=== PATIENT | female | born 1940 | race Caucasian/White ===

== ENCOUNTER 2016-08-16 17:57 | Inpatient (IN) | payer OTHER ==
[2016-08-16] MEDS ORDERED: SODIUM CHLORIDE 0.9% 10 ML FLUSH FLUSH PRN (18:07)
[2016-08-16] MEDS ORDERED: METHYLPREDNISOLONE 125 MG/2 ML VIAL IV ONE (18:07)
[2016-08-16] MEDS ORDERED: Albuterol/Ipratropium Neb 3 ML NEB NEB ONE (18:07)
--- NOTE | 2016-08-16 18:09 | EDPRACDOC ---
- General Information Information Source: Patient, Family Mode Of Arrival: Car - History of Present Illness Onset: 1 week HPI: Pt c/o sob, green productive cough, congestion x 1 week. Denies fever, earache, sore throat, cp, abd pain, n/v, changes in bowel or bladder, rash. Pt states leg swelling for "a while" but has not recently changed. Pt sent from Urgent care for eval. Shortness of Breath: Mild Relevant History: Reports: COPD Cough: Reports: Productive, Green Rhinorrhea: Reports: Clear Ear Symptoms: Reports: None SOB Worsens with: Reports: Exertion, Coughing SOB Improves with: Reports: Nothing Associated Signs and symptoms: Reports: Cough, Nasal Symptoms <Vikki Sue - Last Filed: 08/16/16 20:29> - History of Present Illness HPI: MD NOTE PT SEEN AND EXAMINED; FAMILY IS VERY CONFUSED. SEEN AT URGENT CARE BY DR. JENKINS. 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 SENT HERE FOR CXR AND TOLD PT NEEDED TO BE ADMITTED. FAMILY WAS UNAWARE HE DOES NOT HAVE ADMITTING PRIVILEGES HERE. COUGH AND CONGESTION. REPORTEDLY ABX AND NEBS GIVEN THERE AT URGENT CARE. THEY CLOSED AT 6P. UNABLE TO CONTACT. I EXPLAINED MULTIPLE TIMES WE NEED MORE INFORMATION BEFORE FINAL DECISION IS MADE. EXPLAINED MORE TO THE ENTIRE PROCESS OF PNEUMONIA AND ADMISSION OR SOMETHING ELSE. FAMILY REPORTS IM INJECTION AT <TroyBenjyjaime Phillips - Last Filed: 08/16/16 21:43> - General Information Chief Complaint: Adult Asthma Stated Complaint: Resp distress Time Seen by Provider: 08/16/16 18:01 Home Medications: Home Medications Alprazolam 1 mg PO TID 06/29/12 Losartan Potassium [Cozaar] 100 mg PO DAILY 06/29/12 Omeprazole 20 mg PO QAM 06/29/12 Simvastatin 40 mg PO HS 06/29/12 Trazodone HCl 100 - 200 mg PO HS 06/29/12 Aspirin (Enteric Coated) [Halfprin] 81 mg PO DAILY 08/26/13 Calcium Carbonate/Vitamin D3 [Calcium + Vit D Caplet (600mg/400IU)] 1 tab PO DAILY 08/26/13 Donepezil HCl [Aricept] 5 mg PO HS 08/26/13 Gabapentin 100 mg PO BID 08/26/13 Oxycodone HCl/Acetaminophen [Percocet 5-325 mg Tablet] 1 tab PO BID PRN Ranitidine [Zantac] 150 mg PO BID 08/26/13 Cetirizine HCl [All Day Allergy] 10 mg PO DAILY 04/21/14 Furosemide [Lasix] 80 mg PO DAILY 04/21/14 Hydralazine HCl 100 mg PO TID 04/21/14 Labetalol HCl 200 mg PO TID 04/21/14 Duloxetine [Cymbalta] 60 mg PO DAILY 08/16/16 Meloxicam [Mobic] 7.5 mg PO BID 08/16/16 Allergies/Adverse Reactions: Allergies Allergy/AdvReac Type Severity Reaction Status Date / Time Sulfa (Sulfonamide Allergy Unknown/See Verified 08/16/16 18:35 Antibiotics) Comments [Sulfa(Sulfonamide Antibiotics)] - Treatment Prior to ED Arrival Reported 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/Treatment 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 Treated With Medication 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 YES Medications 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 (Medication/ DuoNeb, rocephin Dose/Time) <Vikki Sue - Last Filed: 08/16/16 20:29> - Treatment Prior to ED Arrival Reported Medications/Treatment 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 Treated With Medication 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 YES Medications 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 (Medication/ DuoNeb, rocephin Dose/Time) <Benjy Simmons - Last Filed: 08/16/16 21:43> ED Past Medical History - History Reviewed Yes Nurses notes reviewed and agree except as marked - Patient Medical History Cardiac History: Reports: Hypertension, Hypercholesterolemia Respiratory History: Reports: Asthma, COPD GI/ History: Reports: Gastroesophageal Reflux Musculoskeletal History: Reports: Osteoarthritis Psychological History: Reports: Anxiety. Denies: Depression, Substance Use Disorder Systemic History: Reports: Cancer (BREAST, MELANOMA), Anemia, Hypothyroidism Surgical History: Reports: Tonsillectomy/Adnoidectomy Date of Last Radiation Treatment: 1993 Date of Last Chemotherapy Date: 1993 - Family Medical History Reports: Hypertension (MOM/DAD), Cancer (DAD-COLONCANCER), Stroke (Mother and Father). Denies: Diabetes, Cardiac Disorders - Social Medical History Smoking Status: Never smoker Social History: Denies: Substance Use Disorder ETOH: None Substance Abuse: None <Vikki Sue - Last Filed: 08/16/16 20:29> EDM Review of Systems - Review of Systems Constitutional: No Symptoms Reported. negative: Fever, Chills, Weakness, Fatigue, Loss of Appetite Ears: No Symptoms Reported. negative: Pain, Hearing Loss, Drainage, Ear Pulling Throat: No Symptoms Reported. negative: Pain, Swelling Nose: Congestion Mouth: No Symptoms Reported. negative: Pain, Drooling Respiratory: Cough, Shortness of Breath Cardiovascular: Edema. negative: No Symptoms Reported, Chest Pain, Cyanosis, Orthopnea, Palpitations, PND, Syncope, Skin Mottling Gastrointestinal: No Symptoms Reported. negative: Pain, Constipation, Nausea, Vomiting, Diarrhea, Melena, Formula Intolerance Genitourinary: No Symptoms Reported. negative: Dysuria, Hematuria, Frequency, Discharge, Bleeding, Testicular Pain, Neurological: No Symptoms Reported. negative: Headache, Dizziness, Seizure, Numbness, Weakness, Speech Difficulty, Gait Difficulty Musculoskeletal: No Symptoms Reported. negative: Neck, Chestwall, Ribs, Back, Shoulder, Arm, Elbow, Forearm, Wrist, Hand, Pelvis, Hip, Femur, Knee, Leg, Ankle , Foot Integumentary: No Symptoms Reported. negative: Itching, Rash, Bruising, Wound Allergic/Immunologic: No Symptoms Reported. negative: Hives, Itching Hematologic: No Symptoms Reported. negative: Lymphadenopathy, Easy Bruising, Easy Bleeding Psychiatric: No Symptoms Reported. negative: Anxiety, Depression, Hallucinations, Insomnia, Suicidal <Vikki Sue - Last Filed: 08/16/16 20:29> - Physical Exam Constitutional: Alert Oriented to: Time, Person, Place Last recorded Vital Signs: Last Vital Signs Temp 98.7 F 08/16/16 18:02 Pulse 80 08/16/16 18:02 Resp 22 08/16/16 18:02 BP 175/76 08/16/16 18:02 Pulse Ox 93 08/16/16 18:02 Oxygen Pulse Oxygen Saturation 93 O2 Device Room Air Oxygen Flow Rate Fraction of Inspired Oxygen ( FIO2) - HEENT Head: Normal ( normocephalic) Eye Exam: Normal (PERRL, EOMI, Sclera white) Oropharynx: Normal (Pharynx:Moist without exudate,Gums-no swelling) Tympanic Membrane: Normal ENT EAC: Normal Nose: Congestion Neck: Normal (FROM, trachea at midline) - Respiratory/Cardiovascular Respiratory: Rales Cardiovascular: Normal (RRR without murmur, gallop or rub) - GI Auscultation: Normal (NABS) Palpation: Normal (Soft,No rebound or guarding, non distended) Tenderness: Non tender - Musculoskeletal Back: Normal (Non-Tender) Extremities: Edema (+2 bilateral lower legs) - Integumentary Skin: Normal, Warm, Dry Lymphatics: Normal (no adenopathy) - Neurologic Memory Impaired: Normal Motor Function: Normal (Normal tone, Pulses 2+ No cyanosis or edema, FROM) Mood Description: Normal Perception: Normal <Vikki Sue - Last Filed: 08/16/16 20:29> - Physical Exam Last recorded Vital Signs: Last Vital Signs Temp 98.7 F 08/16/16 18:02 Pulse 80 08/16/16 18:02 Resp 22 08/16/16 18:02 BP 175/76 08/16/16 18:02 Pulse Ox 93 08/16/16 18:02 Oxygen Pulse Oxygen Saturation 93 O2 Device Room Air Oxygen Flow Rate Fraction of Inspired Oxygen ( FIO2) <Benjy Simmons - Last Filed: 08/16/16 21:43> ED SOB MDM - Differential Diagnosis Differential Diagnosis: Heart Failure, Pnuemonia, Respiratory Insufficiency, URI , Other (COPD exacberation) - Results Result Diagrams: 08/16/16 19:20 08/16/16 19:20 - EKG EKG #1 EKG Time: 18:14 Rate: bpm: 82 [place]: LAD Rhythm: NSR, PACs Block: None ST: Nonsp Comparison: 04/21/14 (no significant change) - Diagnostic Imaging Chest Image interpreted by: Radiologist Diagnostic Imaging Comments: IMPRESSION: No active disease. <Vikki Sue - Last Filed: 08/16/16 20:29> - Results Result Diagrams: 08/16/16 19:20 08/16/16 19:20 Results: Puncture Site Right radial 08/16/16 18:25 pH 7.500 pH UNITS (7.35-7.45) H 08/16/16 18:25 pCO2 38.0 mmHg (35-45) 08/16/16 18:25 pO2 69.0 mmHg (80-100) L 08/16/16 18:25 HCO3 29.6 MMOL/L (22-26) H 08/16/16 18:25 Total CO2 30.8 MMOL/L (23-27) H 08/16/16 18:25 Base Excess 6.1 (+/- 2) H 08/16/16 18:25 FiO2 % 21% 08/16/16 18:25 Specimen Drawn By Emma 08/16/16 18:25 Lab Results 08/16/16 18:25 Puncture Site Right radial pH 7.500 H pCO2 38.0 pO2 69.0 L HCO3 29.6 H Total CO2 30.8 H Base Excess 6.1 H FiO2 % 21% Specimen Drawn By Emma <Benjy Simmons - Last Filed: 08/16/16 21:43> - Departure Disposition: Admit IP To This Hospital Education/Counseling Given To: Patient Education/Counseling Given Regarding: Diagnosis, Treatment, Follow Up Decision to Admit Time: 20:30 (Dr Simmons contacted Dr Wayne for admission consult ) Decision to admit date: 08/16/16 Decision to admit: from ED <Vikki Sue - Last Filed: 08/16/16 20:29> Decision to Admit Time: 21:30 Decision to admit date: 08/16/16 Decision to admit: from ED <Benjy Simmons - Last Filed: 08/16/16 21:43> - Departure Condition: Stable Final Diagnosis: Bronchopneumonia, COPD exacerbation Referrals: Burke Loera MD [Primary Care Provider] - One Week
[2016-08-16 18:28] LABS: ALLEN'S TEST PASS; BEb 6.1 (+/- 2); TCO2 30.8 MMOL/L (23-27)
[2016-08-16 18:29] LABS: ABG Draw Site Right Radial
--- NOTE | 2016-08-16 18:59 | DIRPT ---
CLINICAL DATA: 75-year-old female with shortness of breath. EXAM: PORTABLE CHEST 1 VIEW COMPARISON: 06/28/2016 and prior radiographs. FINDINGS: Upper limits normal heart size again noted. There is no evidence of focal airspace disease, pulmonary edema, suspicious pulmonary nodule/mass, pleural effusion, or pneumothorax. No acute bony abnormalities are identified. IMPRESSION: No active disease. Electronically Signed By: French King M.D. On: 08/16/2016 18:57
[2016-08-16] MEDS ORDERED: Pharmacy Review for Metformin - IV Contrast Given SCH (19:00)
[2016-08-16 19:37] LABS: AUTOMATED BASOPHIL 0.8 % (0-2); AUTOMATED EOSINOPHIL 2.9 % (0-5); AUTOMATED LYMPH 15.3 % (17-44); AUTOMATED MONOCYTE 10.4 % (3-10); AUTOMATED NEUTROPHIL 70.6 % (45-76)
[2016-08-16 19:52] LABS: BLOOD UREA NITROGEN 15 MG/DL (7-17); CALCIUM 8.3 MG/DL (8.4-10.2); CALCULATED OSMOLALITY 267 MOs/Kg (270-290); CHLORIDE 101 mEq/L (98-107); GLUCOSE 106 MG/DL (70-99); SODIUM LEVEL 138 mEq/L (137-146); TOTAL PROTEIN 6.2 G/DL (6.3-8.2)
[2016-08-16 19:56] LABS: PARTIAL THROMB. TIME 24.4 SEC (22-35)
[2016-08-16] MEDS ORDERED: AZITHROMYCIN 500 MG in D5W 250 ML IV ONE (19:57)
--- NOTE | 2016-08-16 20:04 | HISTPHYS ---
- Chief Complaint shortness of breath - History of Present Illness PRIMARY CARE PROVIDER: Dr. Loera HPI: The patient is a 75 yo woman who presents with shortness of breath. She was at urgent care and they told her to come to the emergency department for admission. Her oxygen level was 91% at the urgent care; she was given an IM injection of Rocephin and a breathing treatment. She has had a severe cough and congestion for over a week. She was taking over the counter medications. Some wheezing. Shortness of breath. Onset: over a week ago. Duration: intermittent. Character: can't get a good breath. Alleviated by: Nothing. Exacerbated by: Nothing. Associated Symptoms: Shortness of breath, coughing, wheezing. Coughing productive of green sputum, but it was hard to get up. Chills but no fever. No diaphoresis. Difficulty walking and falling often over several months. Dysuria and mild hematuria. Treatments: none at home except usual medications. - Medical History Cardiac History: Reports: Hypertension, Hypercholesterolemia, SVT (resolved after ablation), Other (LONG QT SYNDROME.) Respiratory History: Reports: Asthma, COPD GI/ History: Reports: Gastroesophageal Reflux Musculoskeletal History: Reports: Osteoarthritis Systemic History: Reports: Cancer (BREAST LEFT 1989, MELANOMA - 1988. Radiation and chemotherapy.), Anemia, Hypothyroidism Neurological History: Reports: Dementia Psychological History: Reports: Anxiety. Denies: Depression, Substance Use Disorder - Surgical History Reports: Tonsillectomy/Adnoidectomy - Medictions/Allergies Allergies Sulfa (Sulfonamide Antibiotics) [Sulfa(Sulfonamide Antibiotics)] Allergy ( Verified 08/16/16 18:35) Unknown/See Comments Caused cellulitis in both ankles twice Current Medication List: Reviewed Home Medications Alprazolam 1 mg PO TID 06/29/12 Losartan Potassium [Cozaar] 100 mg PO DAILY 06/29/12 Omeprazole 20 mg PO QAM 06/29/12 Simvastatin 40 mg PO HS 06/29/12 Trazodone HCl 100 - 200 mg PO HS 06/29/12 Aspirin (Enteric Coated) [Halfprin] 81 mg PO DAILY 08/26/13 Calcium Carbonate/Vitamin D3 [Calcium + Vit D Caplet (600mg/400IU)] 1 tab PO DAILY 08/26/13 Donepezil HCl [Aricept] 5 mg PO HS 08/26/13 Gabapentin 100 mg PO BID 08/26/13 Oxycodone HCl/Acetaminophen [Percocet 5-325 mg Tablet] 1 tab PO BID PRN Ranitidine [Zantac] 150 mg PO BID 08/26/13 Cetirizine HCl [All Day Allergy] 10 mg PO DAILY 04/21/14 Furosemide [Lasix] 80 mg PO DAILY 04/21/14 Hydralazine HCl 100 mg PO TID 04/21/14 Labetalol HCl 200 mg PO TID 04/21/14 Duloxetine [Cymbalta] 60 mg PO DAILY 08/16/16 Meloxicam [Mobic] 7.5 mg PO BID 08/16/16 - Family History Reports: Hypertension (MOM/DAD), Cancer (FATHER - COLON CANCER), Stroke (Mother and Father), Cardiac Disorders (3 daughters LONG QT SYNDROME. Brother [place] and 57yo.). Denies: Diabetes - Social History Smoking Status: Former smoker (Quit 14 years ago. Previously 1ppd.) Social History: Denies: Alcohol Use, Substance Use Disorder - Review of Systems GENERAL: Chills but no fever. No diaphoresis. Positive for fatigue/malaise. HEENT: No ear pain or discharge. No nasal discharge or bleeding. No throat pain or swelling. No eye pain or eye redness. RESPIRATORY: Shortness of breath, coughing, wheezing. CARDIOVASCULAR: No chest pain or palpitations. GI: No abdominal pain, nausea, vomiting, diarrhea, constipation, or bloody stool. NEUROLOGICAL: No headache or focal weakness. INTEGUMENT: no rashes, itching, or lesions. LYMPHATIC SYSTEM: no lymph node swelling or pain. MUSCULOSKELETAL: Leg weakness and pain x months; otherwise no new pain or joint swelling. GENITOURINARY: Dysuria and mild hematuria. ENDOCRINE: No polyuria or polydipsia. HEME: No chronic anemia, bleeding. Positive for easy bruising. - Physical Exam Vital Signs: Initial Vitals Temperature 98.7 F 08/16/16 18:02 Pulse Rate 80 08/16/16 18:02 Respiratory Rate 22 08/16/16 18:02 Blood Pressure 175/76 08/16/16 18:02 Pulse Oxygen Saturation 93 08/16/16 18:02 Vital Signs - 24 hr 08/16/16 18:02 Temperature 98.7 F Pulse Rate 80 Respiratory 22 Rate Blood Pressure 175/76 Pulse Oxygen 93 Saturation Weight: 77.1 kg Height: 5 feet 6 inches BMI: 27.4 - Other Exam Other Exam Findings: GENERAL: Ill-appearing, well nourished, in acute distress. HEENT: Normocephalic, atraumatic; pupils equal and round. Nares patent, without discharge or bleeding. No oropharyngeal lesions or erythema. Mucous membranes are dry. NECK: is supple, no masses, trachea midline. RESPIRATORY: Clear to auscultation bilaterally. Chest wall movements are symmetric. No use of accessory muscles to breathe. Intermittent tachypnea. Decreased breath sounds in bases. Minimal rhonchi. Scattered minimal wheezing. CARDIOVASCULAR: Normal S1, S2. Murmur 2/6 systolic flow heard intermittently. No rubs, or gallops. PMI non-displaced. Carotids: no carotid bruits. No bradycardia or tachycardia. DP pulses 2+ bilaterally. GI: soft, nontender, non-distended, normal active bowel sounds. No hepatosplenomegaly. INTEGUMENT: Clean, dry, and intact. Erythematous rash in the inguinal areas. No lesions. MUSCULOSKELETAL: Moving all extremities. No cyanosis. No clubbing. Edema: trace lower extremity edema bilaterally. NEUROLOGICAL: Cranial nerves 2-12 grossly intact. Motor 4/5 throughout upper extremities and 4-/5 in lower extremities. Reflexes: 2+ bilaterally. Babinski: toes downgoing bilaterally. Intact Finger to nose. Sensory grossly intact to light touch. Intact rapid alternating movements bilaterally. No pronator drift. PSYCHIATRIC: Fully oriented. Normal and appropriate affect. LYMPHATIC: No cervical lymphadenopathy. No supraclavicular lymphadenopathy. - Lab Results Laboratory Results - last 24 hr 08/16/16 08/16/16 08/16/16 18:25 19:20 19:20 WBC RBC Hgb Hct MCV MCH MCHC RDW Plt Count MPV Neut % (Auto) Lymph % (Auto) [place] % (Auto) Eos % (Auto) Baso % (Auto) Absolute Neuts (auto) Absolute Lymphs (auto) PT INR APTT Puncture Site Right radial pH 7.500 H pCO2 38.0 pO2 69.0 L HCO3 29.6 H Total CO2 30.8 H Base Excess 6.1 H FiO2 % 21% Specimen Drawn By Roude Sodium 138 Potassium 3.2 L Chloride 101 Carbon Dioxide 28 Anion Gap 12 BUN 15 Creatinine 0.90 Estimated GFR (MDRD) > 60 Glucose 106 H Calculated Osmolality 267 L Lactic Acid 0.9 Calcium 8.3 L Corrected Calcium 9.0 Total Bilirubin 0.4 AST 27 ALT 20 Alkaline Phosphatase 91 Total Protein 6.2 L Albumin 3.3 L 08/16/16 08/16/16 19:20 19:20 WBC 10.1 RBC 3.64 L Hgb 10.7 L Hct 32.2 L MCV 89 MCH 29.4 MCHC 33.2 RDW 14.2 Plt Count 215 MPV 7.0 L Neut % (Auto) 70.6 Lymph % (Auto) 15.3 L [place] % (Auto) 10.4 H Eos % (Auto) 2.9 Baso % (Auto) 0.8 Absolute Neuts (auto) 7.07 Absolute Lymphs (auto) 1.52 PT 10.1 INR 1.0 APTT 24.4 Puncture Site pH pCO2 pO2 HCO3 Total CO2 Base Excess FiO2 % Specimen Drawn By Sodium Potassium Chloride Carbon Dioxide Anion Gap BUN Creatinine Estimated GFR (MDRD) Glucose Calculated Osmolality Lactic Acid Calcium Corrected Calcium Total Bilirubin AST ALT Alkaline Phosphatase Total Protein Albumin - Diagnostic Findings EK bpm. Sinus rhythm with PACs. Nonspecific T wave abnormality. Flat T waves in 2, 3, V5, and V6. Inverted T wave in leads V2, V3, and V4. Reviewed EKG personally. Chest x-ray, viewed personally: EXAM: PORTABLE CHEST 1 VIEW COMPARISON: 06/28/2016 and prior radiographs. FINDINGS: Upper limits normal heart size again noted. There is no evidence of focal airspace disease, pulmonary edema, suspicious pulmonary nodule/mass, pleural effusion, or pneumothorax. No acute bony abnormalities are identified. IMPRESSION: No active disease. CTA Chest: EXAM: CT ANGIOGRAPHY CHEST WITH CONTRAST TECHNIQUE: Multidetector CT imaging of the chest was performed using the standard protocol during bolus administration of intravenous contrast. Multiplanar CT image reconstructions and MIPs were obtained to evaluate the vascular anatomy. CONTRAST: 80 mL of Isovue 370 IV contrast COMPARISON: Chest radiograph performed earlier today at 6:28 p.m. FINDINGS: There is no evidence of pulmonary embolus. Patchy bibasilar airspace opacities raise concern for pneumonia. A 5 mm nodule at the medial right upper lobe (image 37 of 117) may also reflect acute infection. There is no evidence of significant focal consolidation, pleural effusion or pneumothorax. No masses are identified; no abnormal focal contrast enhancement is seen. Visualized mediastinal nodes remain borderline normal in size. No pericardial effusion is identified. The great vessels are grossly unremarkable in appearance. No axillary lymphadenopathy is seen. Scattered hypodensities and calcifications within the thyroid are likely within normal limits. No dominant mass is seen. The visualized portions of the liver and spleen are unremarkable. The visualized portions of the pancreas, stomach, adrenal glands and kidneys are within normal limits. No acute osseous abnormalities are seen. Minimal degenerative change is noted along the upper thoracic spine. Review of the MIP images confirms the above findings. IMPRESSION: 1. No evidence of pulmonary embolus. 2. Patchy bibasilar airspace opacities raise concern for pneumonia. 3. 5 mm nodule at the medial right upper lobe may also reflect acute infection. However, depending on the degree of clinical suspicion, if the patient is at high risk for bronchogenic carcinoma, follow-up chest CT at 6-12 months is recommended. If the patient is at low risk for bronchogenic carcinoma, follow-up chest CT at 12 months is recommended. This recommendation follows the consensus statement: Guidelines for Management of Small Pulmonary Nodules Detected on CT Scans: A Statement from the Fleischner Society as published in Radiology 2005;237:395-400. 4. Sub-centimeter thyroid nodule(s) noted, too small to characterize, but most likely benign. - Assessment (1) Bacterial pneumonia J15.9 - UNSPECIFIED BACTERIAL PNEUMONIA Acute Present on Admission: Yes Pneumonia. Requiring continuous oxygen support. Type: Community acquired pneumonia. Criteria for diagnosis: Chest CT suggestive of pneumonia. Likely bacterial. Plan: Sputum culture has been ordered. Treat with IV Zosyn, due to patient's significant history of long QT syndrome. Monitor oxygen saturation levels. (2) Hypoxia R09.02 - HYPOXEMIA Acute Present on Admission: Yes O2 by nasal cannula. (3) Hypokalemia E87.6 - HYPOKALEMIA Acute Present on Admission: Yes Replace potassium with KCl. Check magnesium level and replace as needed. (4) Long QT syndrome I45.81 - LONG QT SYNDROME Acute Present on Admission: Yes Due to her long QT syndrome, do not use azithromycin, Levaquin or other fluoroquinolones, Zofran, or other medications that can prolong the QT. Will also hold patient's Aricept and trazadone that she takes at home, due to their ability to cause prolonged QT. Patient to follow up with her primary care to discuss whether she would be able to take other medications in place of these. (5) COPD exacerbation J44.1 - CHRONIC OBSTRUCTIVE PULMONARY DISEASE W (ACUTE) EXACERBATION Acute Present on Admission: Yes COPD exacerbation suspected, but contribution to patient's respiratory disress is minimal. Plan: Nebs of Duoneb q 6 hours scheduled and albuterol q 2 hours prn. Sputum culture ordered. IV methylprednisolone. Continuous oxygen support. (6) Abnormal CT scan, chest R93.8 - ABNORMAL FINDINGS ON DIAGNOSTIC IMAGING OF BODY STRUCTURES Acute Present on Admission: Yes IMPRESSION: 1. No evidence of pulmonary embolus. 2. Patchy bibasilar airspace opacities raise concern for pneumonia. 3. 5 mm nodule at the medial right upper lobe may also reflect acute infection. However, depending on the degree of clinical suspicion, if the patient is at high risk for bronchogenic carcinoma, follow-up chest CT at 6-12 months is recommended. If the patient is at low risk for bronchogenic carcinoma, follow-up chest CT at 12 months is recommended. This recommendation follows the consensus statement: Guidelines for Management of Small Pulmonary Nodules Detected on CT Scans: A Statement from the Fleischner Society as published in Radiology 2005;237:395-400. 4. Sub-centimeter thyroid nodule(s) noted, too small to characterize, but most likely benign. Plan: Patient and family informed of results. Follow up with primary care physician for further evaluation. Case Care Discussed with: Patient, Family, Nursing Staff
[2016-08-16] MEDS ORDERED: ACETAMINOPHEN 325 MG/TAB TABLET PO ONE (20:09)
--- NOTE | 2016-08-16 21:42 | DIRPT ---
CLINICAL DATA: Acute onset of decreased O2 saturation. Initial encounter. EXAM: CT ANGIOGRAPHY CHEST WITH CONTRAST TECHNIQUE: Multidetector CT imaging of the chest was performed using the standard protocol during bolus administration of intravenous contrast. Multiplanar CT image reconstructions and MIPs were obtained to evaluate the vascular anatomy. CONTRAST: 80 mL of Isovue 370 IV contrast COMPARISON: Chest radiograph performed earlier today at 6:28 p.m. FINDINGS: There is no evidence of pulmonary embolus. Patchy bibasilar airspace opacities raise concern for pneumonia. A 5 mm nodule at the medial right upper lobe (image 37 of 117) may also reflect acute infection. There is no evidence of significant focal consolidation, pleural effusion or pneumothorax. No masses are identified; no abnormal focal contrast enhancement is seen. Visualized mediastinal nodes remain borderline normal in size. No pericardial effusion is identified. The great vessels are grossly unremarkable in appearance. No axillary lymphadenopathy is seen. Scattered hypodensities and calcifications within the thyroid are likely within normal limits. No dominant mass is seen. The visualized portions of the liver and spleen are unremarkable. The visualized portions of the pancreas, stomach, adrenal glands and kidneys are within normal limits. No acute osseous abnormalities are seen. Minimal degenerative change is noted along the upper thoracic spine. Review of the MIP images confirms the above findings. IMPRESSION: 1. No evidence of pulmonary embolus. 2. Patchy bibasilar airspace opacities raise concern for pneumonia. 3. 5 mm nodule at the medial right upper lobe may also reflect acute infection. However, depending on the degree of clinical suspicion, if the patient is at high risk for bronchogenic carcinoma, follow-up chest CT at 6-12 months is recommended. If the patient is at low risk for bronchogenic carcinoma, follow-up chest CT at 12 months is recommended. This recommendation follows the consensus statement: Guidelines for Management of Small Pulmonary Nodules Detected on CT Scans: A Statement from the Fleischner Society as published in Radiology 2005;237:395-400. 4. Sub-centimeter thyroid nodule(s) noted, too small to characterize, but most likely benign. Electronically Signed By: Rolando Sharma M.D. On: 08/16/2016 21:39
[2016-08-16] MEDS ORDERED: BENZONATATE 100 MG PERLES PO PRN (23:44)
[2016-08-16] MEDS ORDERED: SIMETHICONE 80 MG TAB PO PRN (23:44)
[2016-08-16] MEDS ORDERED: PROMETHAZINE 25 MG/ML VIAL IV PRN (23:44)
[2016-08-16] MEDS ORDERED: ALBUTEROL 0.083% 3 ML NEB NEB PRN (23:44)
[2016-08-16] MEDS ORDERED: Docusate Sodium 100 MG CAP PO PRN (23:44)
[2016-08-16] MEDS ORDERED: TEMAZEPAM 15 MG CAP PO PRN (23:44)
[2016-08-16] MEDS ORDERED: ONDANSETRON HCL 4 MG/2 ML VIAL IV PRN (23:44)
[2016-08-16] MEDS ORDERED: SENNA CONCENTRATE TAB PO PRN (23:44)
[2016-08-16] MEDS ORDERED: ACETAMINOPHEN 325 MG SUPP PR PRN (23:44)
[2016-08-16] MEDS ORDERED: BISACODYL 5 MG TAB PO PRN (23:44)
[2016-08-16] MEDS ORDERED: ALPRAZOLAM 1 MG PO SCH (23:45)
[2016-08-16] MEDS ORDERED: HYDRALAZINE HCL 100 MG PO SCH (23:45)
[2016-08-17] MEDS ORDERED: ALPRAZOLAM 0.5 MG TAB PO ONE (00:15)
[2016-08-17] MEDS: GABAPENTIN 100 MG CAP PO SCH ×4 (00:40→21:41)
[2016-08-17] MEDS: SIMVASTATIN 40 MG TAB PO SCH ×2 (00:40→21:42)
[2016-08-17] MEDS: RANITIDINE 150 MG TAB PO SCH ×3 (00:41→21:42)
[2016-08-17] MEDS: ENOXAPARIN 40 MG/0.4 ML PFS SQ SCH ×2 (00:41→21:43)
[2016-08-17] MEDS: LABETALOL 200 MG TAB PO SCH ×4 (00:41→21:42)
[2016-08-17] MEDS: PIPERACILLIN AND TAZOBACTAM 4.5 GM in D5W 100 ML IV SCH ×4 (00:41→20:25)
[2016-08-17] MEDS ORDERED: Vaccine Screening Complete SCH (01:00)
[2016-08-17] MEDS: Albuterol/Ipratropium Neb 3 ML NEB NEB SCH ×4 (01:26→20:17)
[2016-08-17 01:36] LABS: MPV 7.2 fL (7.4-10.4)
[2016-08-17 01:57] LABS: BLOOD UREA NITROGEN 13 MG/DL (7-17); CALCIUM 8.8 MG/DL (8.4-10.2); CALCULATED OSMOLALITY 267 MOs/Kg (270-290); CHLORIDE 97 mEq/L (98-107); GLUCOSE 185 MG/DL (70-99); SODIUM LEVEL 136 mEq/L (137-146)
[2016-08-17] MEDS: PANTOPRAZOLE 40 MG TAB PO SCH (06:15)
[2016-08-17] MEDS: ALPRAZOLAM 0.5 MG TAB PO SCH ×3 (06:16→21:42)
[2016-08-17] MEDS: ACETAMINOPHEN 325 MG/TAB TABLET PO PRN ×2 (06:19→21:54)
[2016-08-17] MEDS ORDERED: [UNRECOGNIZED DRUG - REMARK] PO SCH (09:00)
[2016-08-17] MEDS ORDERED: Non-Formulary Medication ITEM (Calcium Carbonate/Vitamin D3 [Calcium + Vit D Caplet (600 PO SCH (09:00)
[2016-08-17] MEDS ORDERED: Non-Formulary Medication ITEM (Omeprazole [Omeprazole] 20 MG) PO SCH (09:00)
[2016-08-17] MEDS: LOSARTAN POTASSIUM 50 MG TAB PO SCH (10:30)
[2016-08-17] MEDS: DULOXETINE 60 MG CAPSULE PO SCH (10:30)
[2016-08-17] MEDS: FUROSEMIDE 80 MG TAB PO SCH (10:30)
[2016-08-17] MEDS: METHYLPREDNISOLONE 40 MG/1 ML VIAL IV SCH ×2 (10:30→21:42)
[2016-08-17] MEDS: CALCIUM CARBONATE + VITAMIN D 500 MG TAB PO SCH (10:31)
[2016-08-17] MEDS: CETIRIZINE HCL 10 MG TAB PO SCH (10:31)
--- NOTE | 2016-08-17 10:33 | GENMEDPROG ---
Chief Complaint: Flat affect. Moderate congestion and shortness of breath. Notes Reviewed: Yes Events from last night noted and discussed with Clinical Staff Current Medication List: Reviewed Currently: Reports: Cough, Wheezing, VERONICA, SOB. Denies: Nausea and Vomiting, Chest Pain DVT Prophylaxis: Yes - Physical Examination Vital Signs and I&O: Last Vital Signs Temp 98.6 F 08/17/16 07:51 Pulse 79 08/17/16 10:00 Resp 20 08/17/16 07:51 BP 122/55 L 08/17/16 07:51 Pulse Ox 95 08/17/16 08:00 Oxygen Pulse Oxygen Saturation 95 O2 Device Nasal Cannula Oxygen Flow Rate 2 Fraction of Inspired Oxygen ( FIO2) Intake & Output 08/14/16 08/15/16 08/16/16 08/17/16 23:59 23:59 23:59 23:59 Intake Total 250 561 Balance 250 561 Patient's weight 80.467 kg 80.513 kg General: Alert, Oriented x3, Cooperative, Mild distress. negative: Well appearing (Acutely ill-appearing) HEENT: Normal, PERRLA, EOMI, Anicteric Sclera Neck: Non-tender, Full range of motion, Normal Trachea alignment Lymphatics: Normal (no adenopathy) Respiratory: Rales, Rhonchi Cardiovascular: Regular rate and rhythm, No Gallops,Rubs/Murmurs GI: Normal bowel sounds, Soft, Non tender, No hepatospenomegaly Extremities/Musculoskeletal: Normal pulses. negative: Tenderness, Swelling, Edema Skin: Warm,Dry and Intact, No rashes, No breakdown Neurological: Strength at 5/5 X4 ext, Cranial nerves 3-12 NL Psych/Mental Status: Appropriate, Cooperative. negative: Normal Affect (Flat) Lab/DI/Studies Reviewed: Laboratory Results - last 24 hr 08/16/16 08/16/16 08/16/16 18:25 19:20 19:20 WBC RBC Hgb Hct MCV MCH MCHC RDW Plt Count MPV Neut % (Auto) Lymph % (Auto) [place] % (Auto) Eos % (Auto) Baso % (Auto) Absolute Neuts (auto) Absolute Lymphs (auto) PT INR APTT Puncture Site Right radial pH 7.500 H pCO2 38.0 pO2 69.0 L HCO3 29.6 H Total CO2 30.8 H Base Excess 6.1 H FiO2 % 21% Specimen Drawn By Roude Sodium 138 Potassium 3.2 L Chloride 101 Carbon Dioxide 28 Anion Gap 12 BUN 15 Creatinine 0.90 Estimated GFR (MDRD) > 60 Glucose 106 H Calculated Osmolality 267 L Lactic Acid 0.9 Calcium 8.3 L Corrected Calcium 9.0 Total Bilirubin 0.4 AST 27 ALT 20 Alkaline Phosphatase 91 Troponin I < 0.01 [id number] Pept 1320 Total Protein 6.2 L Albumin 3.3 L 08/16/16 08/16/16 08/16/16 19:20 19:20 22:05 WBC 10.1 RBC 3.64 L Hgb 10.7 L Hct 32.2 L MCV 89 MCH 29.4 MCHC 33.2 RDW 14.2 Plt Count 215 MPV 7.0 L Neut % (Auto) 70.6 Lymph % (Auto) 15.3 L [place] % (Auto) 10.4 H Eos % (Auto) 2.9 Baso % (Auto) 0.8 Absolute Neuts (auto) 7.07 Absolute Lymphs (auto) 1.52 PT 10.1 INR 1.0 APTT 24.4 Puncture Site pH pCO2 pO2 HCO3 Total CO2 Base Excess FiO2 % Specimen Drawn By Sodium Potassium Chloride Carbon Dioxide Anion Gap BUN Creatinine Estimated GFR (MDRD) Glucose Calculated Osmolality Lactic Acid Calcium Corrected Calcium Total Bilirubin AST ALT Alkaline Phosphatase Troponin I < 0.01 Rsk-I-Wbhbopnjbyy Pept Total Protein Albumin 08/17/16 08/17/16 08/17/16 00:45 00:55 00:55 WBC 11.6 H RBC 3.75 L Hgb 11.0 L Hct 33.2 L MCV 89 MCH 29.4 MCHC 33.2 RDW 13.9 Plt Count 242 MPV 7.2 L Neut % (Auto) Lymph % (Auto) [place] % (Auto) Eos % (Auto) Baso % (Auto) Absolute Neuts (auto) Absolute Lymphs (auto) PT INR APTT Puncture Site pH pCO2 pO2 HCO3 Total CO2 Base Excess FiO2 % Specimen Drawn By Sodium 136 L Potassium 4.0 Chloride 97 L Carbon Dioxide 29 Anion Gap 14 BUN 13 Creatinine 0.80 Estimated GFR (MDRD) > 60 Glucose 185 H Calculated Osmolality 267 L Lactic Acid Calcium 8.8 Corrected Calcium Total Bilirubin AST ALT Alkaline Phosphatase Troponin I < 0.01 Khz-X-Dnmccmgnjql Pept Total Protein Albumin - Assessment (1) Bacterial pneumonia Acute J15.9 - UNSPECIFIED BACTERIAL PNEUMONIA Comment/Plan: Still congested and weak. Continue IV Zosyn given history of long QT syndrome. Nebulizer treatments and pulmonary toilet. Encourage activity as tolerated. (2) COPD exacerbation Acute J44.1 - CHRONIC OBSTRUCTIVE PULMONARY DISEASE W (ACUTE) EXACERBATION Comment/Plan: Continue nebs, oxygen, steroids and pulmonary toilet. Encourage activity as tolerated. (3) Long QT syndrome Acute I45.81 - LONG QT SYNDROME Comment/Plan: Due to her long QT syndrome, do not use azithromycin, Levaquin or other fluoroquinolones, Zofran, or other medications that can prolong the QT. Will also hold patient's Aricept and trazadone that she takes at home, due to their ability to cause prolonged QT. Patient to follow up with her primary care to discuss whether she would be able to take other medications in place of these. (4) Hypokalemia Acute E87.6 - HYPOKALEMIA Comment/Plan: Replete electrolytes as needed. Case Care Discussed with: Patient, Nursing Staff, Resource Management, Respiratory Therapy, Tonal Regulator
[2016-08-18] MEDS: PIPERACILLIN AND TAZOBACTAM 4.5 GM in D5W 100 ML IV SCH ×4 (01:03→20:12)
[2016-08-18] MEDS: Albuterol/Ipratropium Neb 3 ML NEB NEB SCH ×4 (01:41→20:32)
[2016-08-18] MEDS: GABAPENTIN 100 MG CAP PO SCH ×3 (05:23→20:23)
[2016-08-18] MEDS: LABETALOL 200 MG TAB PO SCH ×3 (05:23→20:23)
[2016-08-18] MEDS: ALPRAZOLAM 0.5 MG TAB PO SCH ×3 (05:23→20:24)
[2016-08-18] MEDS: PANTOPRAZOLE 40 MG TAB PO SCH (05:23)
[2016-08-18] MEDS: LOSARTAN POTASSIUM 50 MG TAB PO SCH (09:39)
[2016-08-18] MEDS: METHYLPREDNISOLONE 40 MG/1 ML VIAL IV SCH ×2 (09:40→20:23)
[2016-08-18] MEDS: FUROSEMIDE 80 MG TAB PO SCH (09:40)
[2016-08-18] MEDS: RANITIDINE 150 MG TAB PO SCH ×2 (09:40→20:24)
[2016-08-18] MEDS: DULOXETINE 60 MG CAPSULE PO SCH (09:40)
[2016-08-18] MEDS: CETIRIZINE HCL 10 MG TAB PO SCH (09:41)
[2016-08-18] MEDS: CALCIUM CARBONATE + VITAMIN D 500 MG TAB PO SCH (12:08)
[2016-08-18] MEDS: GUAIFEN 100 MG-DEXTROMETH 10 MG PER 5 ML PO PRN ×2 (12:11→21:23)
--- NOTE | 2016-08-18 15:41 | GENMEDPROG ---
Chief Complaint: Feels some better today. Less cough and congestion. Says she did get up to the chair some Notes Reviewed: Yes Events from last night noted and discussed with Clinical Staff Current Medication List: Reviewed Currently: Reports: Cough, Wheezing, VERONICA, SOB. Denies: Nausea and Vomiting, Chest Pain DVT Prophylaxis: Yes - Physical Examination Vital Signs and I&O: Last Vital Signs Temp 98.1 F 08/18/16 11:35 Pulse 75 08/18/16 13:52 Resp 20 08/18/16 11:35 BP 160/65 08/18/16 11:35 Pulse Ox 94 08/18/16 11:35 Oxygen Pulse Oxygen Saturation 94 O2 Device Room Air Oxygen Flow Rate 2 Fraction of Inspired Oxygen ( FIO2) Intake & Output 08/15/16 08/16/16 08/17/16 08/18/16 23:59 23:59 23:59 23:59 Intake Total 250 1281 1002 Output Total 1300 1800 Balance 569 -78 -097 Patient's weight 80.467 kg 80.513 kg 79.742 kg General: Alert, Oriented x3, Cooperative, Mild distress. negative: Well appearing (Acutely ill-appearing) HEENT: Normal, PERRLA, EOMI, Anicteric Sclera Neck: Non-tender, Full range of motion, Normal Trachea alignment Lymphatics: Normal (no adenopathy) Respiratory: Rales, Rhonchi Cardiovascular: Regular rate and rhythm, No Gallops,Rubs/Murmurs GI: Normal bowel sounds, Soft, Non tender, No hepatospenomegaly Extremities/Musculoskeletal: Normal pulses. negative: Tenderness, Swelling, Edema Skin: Warm,Dry and Intact, No rashes, No breakdown Neurological: Strength at 5/5 X4 ext, Cranial nerves 3-12 NL Psych/Mental Status: Appropriate, Cooperative. negative: Normal Affect (Flat) - Assessment (1) Bacterial pneumonia Acute J15.9 - UNSPECIFIED BACTERIAL PNEUMONIA Comment/Plan: Some better today. Continue IV Zosyn given history of long QT syndrome. Nebulizer treatments and pulmonary toilet. Encourage activity as tolerated. (2) COPD exacerbation Acute J44.1 - CHRONIC OBSTRUCTIVE PULMONARY DISEASE W (ACUTE) EXACERBATION Comment/Plan: Continue nebs, oxygen, steroids and pulmonary toilet. Encourage activity as tolerated. (3) Long QT syndrome Acute I45.81 - LONG QT SYNDROME Comment/Plan: Due to her long QT syndrome, do not use azithromycin, Levaquin or other fluoroquinolones, Zofran, or other medications that can prolong the QT. Will also hold patient's Aricept and trazadone that she takes at home, due to their ability to cause prolonged QT. Patient to follow up with her primary care to discuss whether she would be able to take other medications in place of these. (4) Hypokalemia Acute E87.6 - HYPOKALEMIA Comment/Plan: Replete electrolytes as needed. Case Care Discussed with: Patient, Nursing Staff, Physical Therapy, Resource Management, Respiratory Therapy, Stock Taker
[2016-08-18] MEDS: ENOXAPARIN 40 MG/0.4 ML PFS SQ SCH (18:11)
[2016-08-18] MEDS: SIMVASTATIN 40 MG TAB PO SCH (20:24)
[2016-08-19] MEDS: PIPERACILLIN AND TAZOBACTAM 4.5 GM in D5W 100 ML IV SCH ×4 (01:15→20:26)
[2016-08-19] MEDS: Albuterol/Ipratropium Neb 3 ML NEB NEB SCH ×4 (01:47→21:18)
[2016-08-19 04:15] LABS: ABG Draw Site Left Radial; ALLEN'S TEST PASS; BEb 10.9 (+/- 2); TCO2 37.2 MMOL/L (23-27)
[2016-08-19 05:26] LABS: AUTOMATED LYMPH 7.7 % (17-44); AUTOMATED MONOCYTE 6.5 % (3-10); AUTOMATED NEUTROPHIL 85.8 % (45-76); MPV 7.3 fL (7.4-10.4)
[2016-08-19] MEDS: ALPRAZOLAM 0.5 MG TAB PO SCH ×3 (05:36→20:27)
[2016-08-19] MEDS: PANTOPRAZOLE 40 MG TAB PO SCH (05:37)
[2016-08-19] MEDS: GABAPENTIN 100 MG CAP PO SCH ×3 (05:37→20:27)
[2016-08-19] MEDS: LABETALOL 200 MG TAB PO SCH ×3 (05:37→20:27)
[2016-08-19 05:42] LABS: BLOOD UREA NITROGEN 22 MG/DL (7-17); CALCIUM 9.1 MG/DL (8.4-10.2); CALCULATED OSMOLALITY 274 MOs/Kg (270-290); CHLORIDE 88 mEq/L (98-107); GLUCOSE 259 MG/DL (70-99); SODIUM LEVEL 136 mEq/L (137-146)
--- NOTE | 2016-08-19 07:58 | GENMEDPROG ---
Chief Complaint: A little better today. Still moderate congestion. Very weak but she did get up to the chair some yesterday. No chest pain and less short of breath today Notes Reviewed: Yes Events from last night noted and discussed with Clinical Staff Current Medication List: Reviewed Currently: Reports: Cough, Wheezing, VERONICA, SOB. Denies: Nausea and Vomiting, Chest Pain DVT Prophylaxis: Yes - Physical Examination Vital Signs and I&O: Last Vital Signs Temp 98.5 F 08/19/16 07:50 Pulse 77 08/19/16 07:50 Resp 19 08/19/16 07:50 BP 130/60 08/19/16 07:50 Pulse Ox 91 08/19/16 07:50 Oxygen Pulse Oxygen Saturation 91 O2 Device Room Air Oxygen Flow Rate 2 Fraction of Inspired Oxygen ( FIO2) Intake & Output 08/16/16 08/17/16 08/18/16 08/19/16 23:59 23:59 23:59 23:59 Intake Total 250 1281 2187 503 Output Total 1300 2600 600 Balance 250 -19 -413 -97 Patient's weight 80.467 kg 80.513 kg 79.742 kg 78.29 kg General: Alert, Oriented x3, Cooperative, Mild distress. negative: Well appearing (Acutely ill-appearing) HEENT: Normal, PERRLA, EOMI, Anicteric Sclera Neck: Non-tender, Full range of motion, Normal Trachea alignment Lymphatics: Normal (no adenopathy) Respiratory: Rales, Rhonchi Cardiovascular: Regular rate and rhythm, No Gallops,Rubs/Murmurs GI: Normal bowel sounds, Soft, Non tender, No hepatospenomegaly Extremities/Musculoskeletal: Normal pulses. negative: Tenderness, Swelling, Edema Skin: Warm,Dry and Intact, No rashes, No breakdown Neurological: Strength at 5/5 X4 ext, Cranial nerves 3-12 NL Psych/Mental Status: Appropriate, Cooperative. negative: Normal Affect (Flat) Lab/DI/Studies Reviewed: Laboratory Results - last 24 hr 08/19/16 08/19/16 08/19/16 04:00 04:45 04:45 WBC 11.1 H RBC 3.92 L Hgb 11.4 L Hct 34.6 L MCV 88 MCH 29.1 MCHC 33.0 RDW 14.4 Plt Count 314 MPV 7.3 L Neut % (Auto) 85.8 H Lymph % (Auto) 7.7 L [place] % (Auto) 6.5 Eos % (Auto) 0.0 Baso % (Auto) 0.0 Absolute Neuts (auto) 9.44 H Absolute Lymphs (auto) 0.78 Puncture Site Left radial pH 7.490 H pCO2 47.0 H pO2 71.0 L HCO3 35.8 H Total CO2 37.2 H Base Excess 10.9 H FiO2 % 21 Specimen Drawn By [place] Sodium 136 L Potassium 3.0 L Chloride 88 L Carbon Dioxide 34 H Anion Gap 17 H BUN 22 H Creatinine 1.00 Estimated GFR (MDRD) 54 L Glucose 259 H Calculated Osmolality 274 Calcium 9.1 - Assessment (1) Bacterial pneumonia Acute J15.9 - UNSPECIFIED BACTERIAL PNEUMONIA Comment/Plan: Slowly better. Remains weak and has not ambulated as yet. Encourage activity and mobility. Continue IV Zosyn given history of long QT syndrome. (2) COPD exacerbation Acute J44.1 - CHRONIC OBSTRUCTIVE PULMONARY DISEASE W (ACUTE) EXACERBATION Comment/Plan: Continue nebs, oxygen, steroids and pulmonary toilet. Encourage activity as tolerated. (3) Long QT syndrome Acute I45.81 - LONG QT SYNDROME Comment/Plan: Due to her long QT syndrome, do not use azithromycin, Levaquin or other fluoroquinolones, Zofran, or other medications that can prolong the QT. Will also hold patient's Aricept and trazadone that she takes at home, due to their ability to cause prolonged QT. Patient to follow up with her primary care to discuss whether she would be able to take other medications in place of these. (4) Hypokalemia Acute E87.6 - HYPOKALEMIA Comment/Plan: Replete electrolytes as needed. Case Care Discussed with: Patient, Nursing Staff, Physical Therapy, Resource Management, Respiratory Therapy, [place] Secretary
[2016-08-19] MEDS: FUROSEMIDE 80 MG TAB PO SCH (09:35)
[2016-08-19] MEDS: CETIRIZINE HCL 10 MG TAB PO SCH (09:35)
[2016-08-19] MEDS: RANITIDINE 150 MG TAB PO SCH ×2 (09:35→20:27)
[2016-08-19] MEDS: CALCIUM CARBONATE + VITAMIN D 500 MG TAB PO SCH (09:35)
[2016-08-19] MEDS: DULOXETINE 60 MG CAPSULE PO SCH (09:35)
[2016-08-19] MEDS: LOSARTAN POTASSIUM 50 MG TAB PO SCH (09:35)
[2016-08-19] MEDS: METHYLPREDNISOLONE 40 MG/1 ML VIAL IV SCH ×2 (09:36→20:27)
[2016-08-19] MEDS: POTASSIUM CHLORIDE 20 MEQ TAB PO SCH ×2 (12:26→17:57)
[2016-08-19] MEDS: ENOXAPARIN 40 MG/0.4 ML PFS SQ SCH (17:57)
[2016-08-19] MEDS: OXYCODONE HCL 5 MG TABLET PO PRN (18:25)
[2016-08-19] MEDS: SIMVASTATIN 40 MG TAB PO SCH (20:27)
[2016-08-20] MEDS: PIPERACILLIN AND TAZOBACTAM 4.5 GM in D5W 100 ML IV SCH ×4 (02:12→20:27)
[2016-08-20] MEDS: Albuterol/Ipratropium Neb 3 ML NEB NEB SCH ×4 (02:27→20:06)
[2016-08-20] MEDS: GABAPENTIN 100 MG CAP PO SCH ×3 (05:36→20:27)
[2016-08-20] MEDS: ALPRAZOLAM 0.5 MG TAB PO SCH ×3 (05:36→20:27)
[2016-08-20] MEDS: PANTOPRAZOLE 40 MG TAB PO SCH (05:36)
[2016-08-20] MEDS: LABETALOL 200 MG TAB PO SCH ×3 (05:36→20:27)
[2016-08-20] MEDS: FUROSEMIDE 80 MG TAB PO SCH (08:10)
[2016-08-20] MEDS: CALCIUM CARBONATE + VITAMIN D 500 MG TAB PO SCH (08:11)
[2016-08-20] MEDS: POTASSIUM CHLORIDE 20 MEQ TAB PO SCH ×2 (08:11→17:43)
[2016-08-20] MEDS: METHYLPREDNISOLONE 40 MG/1 ML VIAL IV SCH ×2 (08:12→20:27)
[2016-08-20] MEDS: LOSARTAN POTASSIUM 50 MG TAB PO SCH (08:12)
[2016-08-20] MEDS: DULOXETINE 60 MG CAPSULE PO SCH (08:12)
[2016-08-20] MEDS: CETIRIZINE HCL 10 MG TAB PO SCH (08:12)
[2016-08-20] MEDS: RANITIDINE 150 MG TAB PO SCH ×2 (08:12→20:28)
--- NOTE | 2016-08-20 16:10 | GENMEDPROG ---
Subjective Note: Patient in chair responsive follows commands. Breathing improved but still dyspneic with exertion still coughing producing small amount of sputum no hemoptysis. Feel weak tired and fatigued unsteady steady on her feet. Notes Reviewed: Yes Events from last night noted and discussed with Clinical Staff Current Medication List: Reviewed Currently: Reports: Cough, Wheezing, VERONICA, SOB, Sputum. Denies: Nausea and Vomiting, Chest Pain DVT Prophylaxis: Yes - Physical Examination Vital Signs and I&O: Last Vital Signs Temp 98.2 F 08/20/16 11:08 Pulse 91 08/20/16 12:58 Resp 18 08/20/16 11:08 BP 132/66 08/20/16 11:08 Pulse Ox 92 08/20/16 11:08 Oxygen Pulse Oxygen Saturation 92 O2 Device Room Air Oxygen Flow Rate 2 Fraction of Inspired Oxygen ( FIO2) Intake & Output 08/17/16 08/18/16 08/19/16 08/20/16 23:59 23:59 23:59 23:59 Intake Total 1281 2187 1414 541 Output Total 1300 2600 2500 1850 Balance -19 -413 -1086 -9268 Patient's weight 80.513 kg 79.742 kg 78.29 kg 78.744 kg General: Alert, Oriented x3, Cooperative. negative: Well appearing (Acutely ill -appearing) HEENT: Normal, PERRLA, EOMI, Anicteric Sclera Neck: Non-tender, Full range of motion, Normal Trachea alignment, Normal inspection, Limited range of motion Lymphatics: Normal (no adenopathy) Respiratory: Diminished, Rales, Rhonchi Cardiovascular: Regular rate and rhythm, Normal S1, No Gallops,Rubs/Murmurs, Normal S2, Murmurs GI: Normal bowel sounds, Soft, Non tender, No hepatospenomegaly, No masses Extremities/Musculoskeletal: Normal pulses. negative: Tenderness, Swelling, Edema Skin: Warm,Dry and Intact, No rashes, No breakdown Neurological: Strength at 5/5 X4 ext, Cranial nerves 3-12 NL Psych/Mental Status: Appropriate, Cooperative, Anxious. negative: Normal Affect (Flat) Lab/DI/Studies Reviewed: Allergies Sulfa (Sulfonamide Antibiotics) [Sulfa(Sulfonamide Antibiotics)] Allergy ( Verified 08/16/16 18:35) Unknown/See Comments Caused cellulitis in both ankles twice Last Vital Signs Temp 98.2 F 08/20/16 11:08 Pulse 91 08/20/16 12:58 Resp 18 08/20/16 11:08 BP 132/66 08/20/16 11:08 Pulse Ox 92 08/20/16 11:08 08/19/16 04:45 08/19/16 04:45 - Assessment (1) Bacterial pneumonia Acute J15.9 - UNSPECIFIED BACTERIAL PNEUMONIA Comment/Plan: Slow clinical improvement. Continue antibiotic and aggressive pulmonary toilet. (2) COPD exacerbation Acute J44.1 - CHRONIC OBSTRUCTIVE PULMONARY DISEASE W (ACUTE) EXACERBATION Comment/Plan: Continue nebs, wean off IV steroids (3) Hypokalemia Acute E87.6 - HYPOKALEMIA Comment/Plan: Replete electrolytes as needed. (4) Essential hypertension Chronic I10 - ESSENTIAL (PRIMARY) HYPERTENSION Comment/Plan: Continue meds keep SBP above 140 (5) Physical deconditioning Acute R53.81 - OTHER MALAISE Comment/Plan: Continue falls and safety precautions. For inpatient PT OT Case Care Discussed with: Patient, Family, Nursing Staff, Dining Car Server Education/Counseling Given To: Patient Education/Counseling Given Regarding: Diagnosis, Treatment, Prognosis, Follow Up Total Time: 45 min . Critical Care: No Code: 58194 (12+)
[2016-08-20] MEDS: ENOXAPARIN 40 MG/0.4 ML PFS SQ SCH (17:42)
[2016-08-20] MEDS: SIMVASTATIN 40 MG TAB PO SCH (20:28)
[2016-08-21] MEDS: Albuterol/Ipratropium Neb 3 ML NEB NEB SCH ×4 (01:49→20:14)
[2016-08-21] MEDS: PIPERACILLIN AND TAZOBACTAM 4.5 GM in D5W 100 ML IV SCH ×4 (02:23→19:44)
[2016-08-21] MEDS: ALPRAZOLAM 0.5 MG TAB PO SCH ×3 (04:57→19:45)
[2016-08-21] MEDS: LABETALOL 200 MG TAB PO SCH ×3 (04:57→19:45)
[2016-08-21] MEDS: PANTOPRAZOLE 40 MG TAB PO SCH (04:57)
[2016-08-21] MEDS: GABAPENTIN 100 MG CAP PO SCH ×3 (04:57→19:44)
[2016-08-21 05:41] LABS: BLOOD UREA NITROGEN 25 MG/DL (7-17); CALCIUM 8.9 MG/DL (8.4-10.2); CALCULATED OSMOLALITY 275 MOs/Kg (270-290); CHLORIDE 91 mEq/L (98-107); GLUCOSE 253 MG/DL (70-99); SODIUM LEVEL 136 mEq/L (137-146)
[2016-08-21] MEDS: LOSARTAN POTASSIUM 50 MG TAB PO SCH (09:50)
[2016-08-21] MEDS: METHYLPREDNISOLONE 40 MG/1 ML VIAL IV SCH ×2 (09:51→19:45)
[2016-08-21] MEDS: FUROSEMIDE 80 MG TAB PO SCH (09:51)
[2016-08-21] MEDS: DULOXETINE 60 MG CAPSULE PO SCH (09:51)
[2016-08-21] MEDS: POTASSIUM CHLORIDE 20 MEQ TAB PO SCH ×2 (09:51→17:37)
[2016-08-21] MEDS: RANITIDINE 150 MG TAB PO SCH ×2 (09:52→19:45)
[2016-08-21] MEDS: CALCIUM CARBONATE + VITAMIN D 500 MG TAB PO SCH (09:52)
[2016-08-21] MEDS: OXYCODONE HCL 5 MG TABLET PO PRN (15:33)
[2016-08-21] MEDS: ENOXAPARIN 40 MG/0.4 ML PFS SQ SCH (17:36)
[2016-08-21] MEDS ORDERED: POTASSIUM CHLORIDE 20 MEQ TAB PO SCH (18:46)
--- NOTE | 2016-08-21 18:49 | GENMEDPROG ---
Subjective Note: Patient in bed responsive oriented follows commands. Breathing better. Slow progress with physical therapy. Appetite improving. Denies any pains. Notes Reviewed: Yes Events from last night noted and discussed with Clinical Staff Current Medication List: Reviewed Currently: Reports: Cough, Wheezing, VERONICA, SOB, Sputum. Denies: Nausea and Vomiting, Chest Pain DVT Prophylaxis: Yes - Physical Examination Vital Signs and I&O: Last Vital Signs Temp 97.9 F 08/21/16 15:44 Pulse 88 08/21/16 15:44 Resp 18 08/21/16 15:44 BP 131/59 L 08/21/16 15:44 Pulse Ox 94 08/21/16 15:44 Oxygen Pulse Oxygen Saturation 94 O2 Device Room Air Oxygen Flow Rate 2 Fraction of Inspired Oxygen ( FIO2) Intake & Output 08/18/16 08/19/16 08/20/16 08/21/16 23:59 23:59 23:59 23:59 Intake Total 2187 1414 1258 786 Output Total 2600 2500 2250 2050 Balance -565 -1086 -992 -1264 Patient's weight 79.742 kg 78.29 kg 78.744 kg 78.982 kg General: Alert, Oriented x3, Cooperative. negative: Well appearing (Acutely ill -appearing) HEENT: Normal, PERRLA, EOMI, Anicteric Sclera Neck: Non-tender, Full range of motion, Normal Trachea alignment, Normal inspection, Limited range of motion Lymphatics: Normal (no adenopathy) Respiratory: Diminished, Rales, Rhonchi Cardiovascular: Regular rate and rhythm, Normal S1, No Gallops,Rubs/Murmurs, Normal S2, Murmurs GI: Normal bowel sounds, Soft, Non tender, No hepatospenomegaly, No masses Extremities/Musculoskeletal: Normal pulses. negative: Tenderness, Swelling, Edema Skin: Warm,Dry and Intact, No rashes, No breakdown Neurological: Strength at 5/5 X4 ext, Cranial nerves 3-12 NL Psych/Mental Status: Appropriate, Cooperative, Anxious. negative: Normal Affect (Flat) Lab/DI/Studies Reviewed: Allergies Sulfa (Sulfonamide Antibiotics) [Sulfa(Sulfonamide Antibiotics)] Allergy ( Verified 08/16/16 18:35) Unknown/See Comments Caused cellulitis in both ankles twice 08/19/16 04:45 08/21/16 04:40 Last Vital Signs Temp 97.9 F 08/21/16 15:44 Pulse 88 08/21/16 15:44 Resp 18 08/21/16 15:44 BP 131/59 L 08/21/16 15:44 Pulse Ox 94 08/21/16 15:44 - Assessment (1) Bacterial pneumonia Acute J15.9 - UNSPECIFIED BACTERIAL PNEUMONIA Comment/Plan: Slow clinical improvement. Continue antibiotic and aggressive pulmonary toilet. Continue flutter and incentive spirometer (2) COPD exacerbation Acute J44.1 - CHRONIC OBSTRUCTIVE PULMONARY DISEASE W (ACUTE) EXACERBATION Comment/Plan: Continue nebs, wean off IV steroids (3) Hypokalemia Acute E87.6 - HYPOKALEMIA Comment/Plan: Replace and monitor. Increase potassium dose.. (4) Essential hypertension Chronic I10 - ESSENTIAL (PRIMARY) HYPERTENSION Comment/Plan: Continue meds keep SBP above 140 (5) Physical deconditioning Acute R53.81 - OTHER MALAISE Comment/Plan: Continue falls and safety precautions. For inpatient PT OT Case Care Discussed with: Patient, Family, Nursing Staff, Respiratory Therapy, Brick Paving Checker Education/Counseling Given To: Patient Education/Counseling Given Regarding: Diagnosis Total Time: 45 min . Critical Care: No Code: 52081 (12+)
[2016-08-21] MEDS: SIMVASTATIN 40 MG TAB PO SCH (19:45)
[2016-08-22] MEDS: PIPERACILLIN AND TAZOBACTAM 4.5 GM in D5W 100 ML IV SCH ×2 (02:14→07:32)
[2016-08-22] MEDS: Albuterol/Ipratropium Neb 3 ML NEB NEB SCH ×3 (02:20→13:24)
[2016-08-22 02:41] VITALS: BMI 28.3
[2016-08-22] MEDS: PANTOPRAZOLE 40 MG TAB PO SCH (05:02)
[2016-08-22] MEDS: GABAPENTIN 100 MG CAP PO SCH ×2 (05:02→14:22)
[2016-08-22] MEDS: LABETALOL 200 MG TAB PO SCH ×2 (05:03→14:22)
[2016-08-22] MEDS: ALPRAZOLAM 0.5 MG TAB PO SCH ×2 (05:03→14:21)
[2016-08-22] MEDS: FUROSEMIDE 80 MG TAB PO SCH (09:48)
[2016-08-22] MEDS: LOSARTAN POTASSIUM 50 MG TAB PO SCH (09:48)
[2016-08-22] MEDS: RANITIDINE 150 MG TAB PO SCH (09:48)
[2016-08-22] MEDS: DULOXETINE 60 MG CAPSULE PO SCH (09:48)
[2016-08-22] MEDS: CALCIUM CARBONATE + VITAMIN D 500 MG TAB PO SCH (09:48)
[2016-08-22] MEDS: METHYLPREDNISOLONE 40 MG/1 ML VIAL IV SCH (09:49)
--- NOTE | 2016-08-22 10:56 | PCM.DCS92 ---
- Final/Secondary Discharge Diagnosis (1) Bacterial pneumonia Acute J15.9 - UNSPECIFIED BACTERIAL PNEUMONIA Present on Admission: Yes Comment: Slow clinical improvement. Continue antibiotic and aggressive pulmonary toilet. Continue flutter and incentive spirometer. Continue finish course of antibiotic (2) COPD exacerbation Acute J44.1 - CHRONIC OBSTRUCTIVE PULMONARY DISEASE W (ACUTE) EXACERBATION Present on Admission: Yes Comment: Continue nebs, continue and finish course of prednisone (3) Hypokalemia Acute E87.6 - HYPOKALEMIA Present on Admission: Yes Comment: Replace and monitor. Increase potassium dose.. (4) Essential hypertension Resolved I10 - ESSENTIAL (PRIMARY) HYPERTENSION Present on Admission: Yes Comment: Continue meds keep SBP above 140 (5) Physical deconditioning Acute R53.81 - OTHER MALAISE Comment: Continue falls and safety precautions. For inpatient PT OT Discharge Disposition: Shelter Facility Discharge Condition: Improved Cognitive Discharge Status: Unimpaired Fuctional Discharge Status: Walker Assistance, Fall Risk, Deconditioning, Ambulatory Dysfunction Physician Follow up/Referrals: Burke Loera MD [Primary Care Provider] - One Week New Prescriptions: Albuterol/Ipratropium Neb [Duoneb] 3 ml NEB Q6H #120 nebu Levofloxacin [Levaquin] 750 mg PO DAILY #5 tablet Guaifenesin [Mucinex] 1,200 mg PO BID #20 tbmp.12hr Oxycodone HCl/Acetaminophen [Percocet 5-325 mg Tablet] 1 tab PO BID PRN #60 tablet PRN Reason: Pain Prednisone 10 mg PO DAILY #30 tab.ds.pk O2 Device: Room Air Diet at Discharge: Heart Healthy, Low Salt, High Fiber Activity: As Tolerated, Limited Call Office For: Worsening Symptoms, Fever over 101 F Discontinue use of:: Alcohol, All Illegal Substances, All Types of Tobacco - DC Summary Notes Hospital Course Note:: Discharge summary on patient named DE GARCIA admitted to [facility] on 08/16/16 by Mac Wayne MD. Date of discharge is []. Patient was initially brought to emergency room on August 16 for evaluation of progressive worsening difficulties breathing cough phlegm production chest tightness and wheezing. Patient has also developed progressive worsening weakness and fatigue. Please refer to the admission for further details. Upon arrival in ED patient was found hypoxic tachypneic and tachycardic CT chest was obtained which showed no PE but patchy bibasilar airspace opacities raising concern for pneumonia also 3.5 mm nodule in the medial aspect right upper lobe. Treatment broad-spectrum antibiotics was instituted patient was admitted to telemetry floor. Due to significant bronchospasm patient required IV steroids nebulized bronchodilators. Her pulmonary status has very slowly but progressively improved and stabilized she was gradually weaned off the oxygen. Outpatient regimen for chronic medical conditions was continued and during hospital stay patient has remained hemodynamically stable. She was mildly anemic however did not meet criteria for blood transfusion and her hemoglobin has oscillating between 10 and 11, renal function remained stable. She required potassium supplements. Patient was seen and evaluated by PT OT and given significant deconditioning for upper of with gait and balance inpatient skilled therapy was recommended. It was felt that by August 22 patient has reached maximum benefit of inpatient therapy and in clinically improved condition she has been transferred to local senior living for PT OT and medical care. Total Time: 45 min . Code: 78556 (>30min.) - Physical Exam Vital Signs: Last Vital Signs Temp 97.9 F 08/22/16 08:09 Pulse 84 08/22/16 08:09 Resp 20 08/22/16 08:09 BP 144/67 08/22/16 08:09 Pulse Ox 96 08/22/16 08:36 Oxygen Pulse Oxygen Saturation 96 O2 Device Room Air Oxygen Flow Rate 2 Fraction of Inspired Oxygen ( FIO2) Constitutional: Alert Oriented to: Time, Person, Place - HEENT Head: Normal ( normocephalic) Eye: Normal (PERRL, EOMI, Sclera white) Oropharynx: Normal (Pharynx:Moist without exudate,Gums-no swelling) Tympanic Membrane: Normal ENT EAC: Normal Nose: Congestion - Respiratory/Cardiovascular Respiratory: Diminished, Rales, Rhonchi Cardiovascular: Normal, Systolic murmur - GI Auscultation: Normal (NABS) Palpation: Normal (Soft,No rebound or guarding, non distended) Tenderness: Non tender Rectal Exam: Deferred - Exam Deferred: Yes - Musculoskeletal Back: Normal (Non-Tender) Extremities: Cyanosis, Edema (+2 bilateral lower legs) - Integumentary Skin: Normal, Warm, Dry Lymphatics: Normal (no adenopathy) - Neurologic Memory Impaired: Normal Motor Function: Abnormal Cranial Nerve: Normal Cerebellar: Ataxia Mood Description: Normal, Anxious Perception: Normal - Other Exam Other Exam Findings: Allergies Sulfa (Sulfonamide Antibiotics) [Sulfa(Sulfonamide Antibiotics)] Allergy ( Verified 08/16/16 18:35) Unknown/See Comments Caused cellulitis in both ankles twice Discharge Home Medication List Alprazolam 1 mg PO TID 06/29/12 [History Confirmed 08/16/16] Losartan Potassium [Cozaar] 100 mg PO DAILY 06/29/12 [History Confirmed 08/16/16 ] Omeprazole 20 mg PO QAM 06/29/12 [History Confirmed 08/16/16] Simvastatin 40 mg PO HS 06/29/12 [History Confirmed 08/16/16] Trazodone HCl 100 - 200 mg PO HS 06/29/12 [History Confirmed 08/16/16] Aspirin (Enteric Coated) [Halfprin] 81 mg PO DAILY 08/26/13 [History Confirmed 08/16/16] Calcium Carbonate/Vitamin D3 [Calcium + Vit D Caplet (600mg/400IU)] 1 tab PO DAILY 08/26/13 [History Confirmed 08/16/16] Donepezil HCl [Aricept] 5 mg PO HS 08/26/13 [History Confirmed 08/16/16] Gabapentin 100 mg PO BID 08/26/13 [History Confirmed 08/16/16] Ranitidine [Zantac] 150 mg PO BID 08/26/13 [History Confirmed 08/16/16] Furosemide [Lasix] 80 mg PO DAILY 04/21/14 [History Confirmed 08/16/16] Hydralazine HCl 100 mg PO TID 04/21/14 [History Confirmed 08/16/16] Labetalol HCl 200 mg PO TID 04/21/14 [History Confirmed 08/16/16] Duloxetine [Cymbalta] 60 mg PO DAILY 08/16/16 [History Confirmed 08/16/16] Meloxicam [Mobic] 7.5 mg PO BID 08/16/16 [History Confirmed 08/16/16] Albuterol/Ipratropium Neb [Duoneb] 3 ml NEB Q6H #120 nebu 08/22/16 [Rx] Guaifenesin [Mucinex] 1,200 mg PO BID #20 tbmp.12hr 08/22/16 [Rx] Levofloxacin [Levaquin] 750 mg PO DAILY #5 tablet 08/22/16 [Rx] Oxycodone HCl/Acetaminophen [Percocet 5-325 mg Tablet] 1 tab PO BID PRN #60 tablet 08/22/16 [Rx] Prednisone 10 mg PO DAILY #30 tab.ds.pk 08/22/16 [Rx] New Discharge Medications (Rx) Albuterol/Ipratropium Neb [Duoneb] 3 ml NEB Q6H #120 nebu 08/22/16 [Rx] Guaifenesin [Mucinex] 1,200 mg PO BID #20 tbmp.12hr 08/22/16 [Rx] Levofloxacin [Levaquin] 750 mg PO DAILY #5 tablet 08/22/16 [Rx] Oxycodone HCl/Acetaminophen [Percocet 5-325 mg Tablet] 1 tab PO BID PRN #60 tablet 08/22/16 [Rx] Prednisone 10 mg PO DAILY #30 tab.ds.pk 08/22/16 [Rx] Home Medications Alprazolam 1 mg PO TID 06/29/12 Losartan Potassium [Cozaar] 100 mg PO DAILY 06/29/12 Omeprazole 20 mg PO QAM 06/29/12 Simvastatin 40 mg PO HS 06/29/12 Trazodone HCl 100 - 200 mg PO HS 06/29/12 Aspirin (Enteric Coated) [Halfprin] 81 mg PO DAILY 08/26/13 Calcium Carbonate/Vitamin D3 [Calcium + Vit D Caplet (600mg/400IU)] 1 tab PO DAILY 08/26/13 Donepezil HCl [Aricept] 5 mg PO HS 08/26/13 Gabapentin 100 mg PO BID 08/26/13 Ranitidine [Zantac] 150 mg PO BID 08/26/13 Furosemide [Lasix] 80 mg PO DAILY 04/21/14 Hydralazine HCl 100 mg PO TID 04/21/14 Labetalol HCl 200 mg PO TID 04/21/14 Duloxetine [Cymbalta] 60 mg PO DAILY 08/16/16 Meloxicam [Mobic] 7.5 mg PO BID 08/16/16 Albuterol/Ipratropium Neb [Duoneb] 3 ml NEB Q6H #120 nebu 08/22/16 Guaifenesin [Mucinex] 1,200 mg PO BID #20 tbmp.12hr 08/22/16 Levofloxacin [Levaquin] 750 mg PO DAILY #5 tablet 08/22/16 Oxycodone HCl/Acetaminophen [Percocet 5-325 mg Tablet] 1 tab PO BID PRN #60 tablet 08/22/16 Prednisone 10 mg PO DAILY #30 tab.ds.pk 08/22/16 08/19/16 04:45 08/21/16 04:40 Microbiology 08/16/16 20:50 Blood Blood Culture - Final No growth aerobically or anaerobically at 120 hours. NORMAL VALUE = No growth 08/16/16 19:20 Blood Blood Culture - Final No growth aerobically or anaerobically at 120 hours. NORMAL VALUE = No growth Microbiology 08/16/16 20:50 Blood Blood Culture - Final No growth aerobically or anaerobically at 120 hours. NORMAL VALUE = No growth 08/16/16 19:20 Blood Blood Culture - Final No growth aerobically or anaerobically at 120 hours. NORMAL VALUE = No growth Active Problems Abnormal CT scan, chest (Acute) R93.8 IMPRESSION: 1. No evidence of pulmonary embolus. 2. Patchy bibasilar airspace opacities raise concern for pneumonia. 3. 5 mm nodule at the medial right upper lobe may also reflect acute infection. However, depending on the degree of clinical suspicion, if the patient is at high risk for bronchogenic carcinoma, follow-up chest CT at 6-12 months is recommended. If the patient is at low risk for bronchogenic carcinoma, follow-up chest CT at 12 months is recommended. This recommendation follows the consensus statement: Guidelines for Management of Small Pulmonary Nodules Detected on CT Scans: A Statement from the Fleischner Society as published in Radiology 2005;237:395-400. 4. Sub- centimeter thyroid nodule(s) noted, too small to characterize, but most likely benign. Plan: Patient and family informed of results. Follow up with primary care physician for further evaluation. Bacterial pneumonia (Acute) J15.9 Slow clinical improvement. Continue antibiotic and aggressive pulmonary toilet. Continue flutter and incentive spirometer Bronchopneumonia (Acute) J18.0 COPD exacerbation (Acute) J44.1 Continue nebs, wean off IV steroids Hypoxia (Acute) R09.02 O2 by nasal cannula. Long QT syndrome (Acute) I45.81 Due to her long QT syndrome, do not use azithromycin, Levaquin or other fluoroquinolones, Zofran, or other medications that can prolong the QT. Will also hold patient's Aricept and trazadone that she takes at home, due to their ability to cause prolonged QT. Patient to follow up with her primary care to discuss whether she would be able to take other medications in place of these. Physical deconditioning (Acute) R53.81 Continue falls and safety precautions. For inpatient PT OT Last Vital Signs Temp 97.9 F 08/22/16 08:09 Pulse 84 08/22/16 08:09 Resp 20 08/22/16 08:09 BP 144/67 08/22/16 08:09 Pulse Ox 96 08/22/16 08:36 Patient Name: DE GARCIA LOC: ED : 1940 AGE: 75 Order Date:08/16/16 Date of Service: Report # [id number] Ord Physician: Doreen Simmons MD Exam # [id number] Emergency Physician: Doreen Simmons MD Exam(s): [id number] CT/CT ANGIO CHEST CLINICAL DATA: Acute onset of decreased O2 saturation. Initial encounter. EXAM: CT ANGIOGRAPHY CHEST WITH CONTRAST TECHNIQUE: Multidetector CT imaging of the chest was performed using the standard protocol during bolus administration of intravenous contrast. Multiplanar CT image reconstructions and MIPs were obtained to evaluate the vascular anatomy. CONTRAST: 80 mL of Isovue 370 IV contrast COMPARISON: Chest radiograph performed earlier today at 6:28 p.m. FINDINGS: There is no evidence of pulmonary embolus. Patchy bibasilar airspace opacities raise concern for pneumonia. A 5 mm nodule at the medial right upper lobe (image 37 of 117) may also reflect acute infection. There is no evidence of significant focal consolidation, pleural effusion or pneumothorax. No masses are identified; no abnormal focal contrast enhancement is seen. Visualized mediastinal nodes remain borderline normal in size. No pericardial effusion is identified. The great vessels are grossly unremarkable in appearance. No axillary lymphadenopathy is seen. Scattered hypodensities and calcifications within the thyroid are likely within normal limits. No dominant mass is seen. The visualized portions of the liver and spleen are unremarkable. The visualized portions of the pancreas, stomach, adrenal glands and kidneys are within normal limits. No acute osseous abnormalities are seen. Minimal degenerative change is noted along the upper thoracic spine. Review of the MIP images confirms the above findings. IMPRESSION: 1. No evidence of pulmonary embolus. 2. Patchy bibasilar airspace opacities raise concern for pneumonia. 3. 5 mm nodule at the medial right upper lobe may also reflect acute infection. However, depending on the degree of clinical suspicion, if the patient is at high risk for bronchogenic carcinoma, follow-up chest CT at 6-12 months is recommended. If the patient is at low risk for bronchogenic carcinoma, follow-up chest CT at 12 months is recommended. This recommendation follows the consensus statement: Guidelines for Management of Small Pulmonary Nodules Detected on CT Scans: A Statement from the Fleischner Society as published in Radiology 2005;237:395-400. 4. Sub-centimeter thyroid nodule(s) noted, too small to characterize, but most likely benign. Electronically Signed By: Rolando Sharma M.D. On: 08/16/2016 21:39 Electronically Signed By: Rolando Sharma MD
[2016-08-22] MEDS ORDERED: ALPRAZOLAM 0.5 MG TAB PO ONE (11:18)
[2016-08-22 11:53] VITALS: BP 138/65; PULSE 104; TEMP 98.8
== END 2016-08-22 15:05 | DRG 194 ==
LOC: ED 17:57 → PCU 22:02
PROVIDERS: ADMIT Internal Medicine; ATTEND Internal Medicine
PROC: 039B3ZZ Drainage of Right Radial Artery, Percutaneous Approach (ICD-10-PCS; principal; 2016-08-16)
DX: J15.9 Unspecified bacterial pneumonia (principal); J44.1 Chronic obstructive pulmonary disease with (acute) exacerbation; J44.0 Chronic obstructive pulmonary disease with (acute) lower respiratory infection; E87.6 Hypokalemia; I10 Essential (primary) hypertension; R53.81 Other malaise; R91.1 Solitary pulmonary nodule; I45.81 Long QT syndrome; E78.00 Pure hypercholesterolemia, unspecified; J45.909 Unspecified asthma, uncomplicated; K21.9 Gastro-esophageal reflux disease without esophagitis; Z85.3 Personal history of malignant neoplasm of breast; Z85.820 Personal history of malignant melanoma of skin; E03.9 Hypothyroidism, unspecified; F41.9 Anxiety disorder, unspecified; Z88.2 Allergy status to sulfonamides; Z79.899 Other long term (current) drug therapy; Z79.82 Long term (current) use of aspirin; Z87.891 Personal history of nicotine dependence; R09.02 Hypoxemia
CPT/HCPCS: 36415; 36600; 71010; 71275; 80048; 80053; 82803; 82962; 83605; 83735; 83880; 84484; 85025; 85027; 85610; 85730; 87040; 93005; 94640; 96365; 96366; 96372; 96375; 97162; 98960; 99284; A9698; J0456; J1650; J2543; J2920; J2930; J3490; J7060; J7070; J7620

== ENCOUNTER 2016-09-24 05:56 | Emergency (ER) | payer OTHER ==
--- NOTE | 2016-09-24 06:11 | EDPRACDOC ---
- History of Present Illness Pain Severity: Reports: Mild Injuries/Pain Location: Reports: upper extremity Reason for Fall: Reports: lost balance Loss of Consciousness: no loss of consciousness Associated Symptoms (Fall): Reports: denies symptoms <Benjy Simmons - Last Filed: 09/24/16 06:48> <Ace Herrera - Last Filed: 09/24/16 07:50> - General Stated Complaint: FALL - History of Present Illness Allergies/Adverse Reactions: Allergies Sulfa (Sulfonamide Antibiotics) [Sulfa(Sulfonamide Antibiotics)] Allergy ( Verified 09/24/16 07:26) Unknown/See Comments Caused cellulitis in both ankles twice Home Medications: Ambulatory Orders Alprazolam 1 mg PO TID PRN 06/29/12 Losartan Potassium [Cozaar] 100 mg PO QAM 06/29/12 Omeprazole 20 mg PO HS 06/29/12 Simvastatin 40 mg PO HS 06/29/12 Trazodone HCl 100 - 200 mg PO HS 06/29/12 Aspirin (Enteric Coated) [Halfprin] 81 mg PO QAM 08/26/13 Donepezil HCl [Aricept] 5 mg PO HS 08/26/13 Gabapentin 100 mg PO BID 08/26/13 Ranitidine [Zantac] 150 mg PO BID 08/26/13 Hydralazine HCl 100 mg PO TID 04/21/14 Labetalol HCl 200 mg PO TID 04/21/14 Duloxetine [Cymbalta] 60 mg PO HS 08/16/16 Meloxicam [Mobic] 7.5 mg PO BID 08/16/16 Oxycodone HCl/Acetaminophen [Percocet 5-325 mg Tablet] 1 tab PO BID PRN #60 tablet 08/22/16 Calcium Carbonate/Vitamin D3 [Calcium 500 + Vit D Caplet] 1 each PO QAM Cetirizine HCl [Zyrtec] 10 mg PO HS 09/24/16 Cyclobenzaprine HCl [Flexeril] 10 mg PO TID PRN 09/24/16 Diclofenac Sodium [Voltaren 1% Topical Gel] 0 gm TOP QID PRN 09/24/16 Oxycodone HCl [Roxicodone] 5 mg PO Q4-6H PRN #15 tablet 09/24/16 Promethazine [Phenergan] 25 mg PO QID PRN 09/24/16 ED Past Medical History - History Reviewed Yes Nurses notes reviewed and agree except as marked - Patient Medical History Neurological History: Reports: Dementia Cardiac History: Reports: Hypertension, Hypercholesterolemia Respiratory History: Reports: Asthma, COPD GI/ History: Reports: Gastroesophageal Reflux Musculoskeletal History: Reports: Osteoarthritis Psychological History: Reports: Anxiety. Denies: Depression, Substance Use Disorder Systemic History: Reports: Cancer (BREAST LEFT 1989, MELANOMA - 1988. Radiation and chemotherapy.), Anemia, Hypothyroidism Surgical History: Reports: Tonsillectomy/Adnoidectomy Date of Last Radiation Treatment: 1993 Date of Last Chemotherapy Date: 1993 - Family Medical History Reports: Hypertension (MOM/DAD), Cancer (FATHER - COLON CANCER), Stroke (Mother and Father), Cardiac Disorders (3 daughters LONG QT SYNDROME. Brother [place] and 57yo.). Denies: Diabetes - Social Medical History Smoking Status: Former smoker (Quit 14 years ago. Previously 1ppd.) Social History: Denies: Other Substance Use <Benjy Simmons - Last Filed: 09/24/16 06:48> EDM Review of Systems - Review of Systems ROS Negative Except as Marked: Yes All systems reviewed and were negative except as marked <Benjy Simmons - Last Filed: 09/24/16 06:48> - Physical Exam Constitutional: Alert (Awake), No apparent distress Oriented to: Time, Person, Place Last recorded Vital Signs: Oxygen Pulse Oxygen Saturation O2 Device Oxygen Flow Rate Fraction of Inspired Oxygen ( FIO2) - HEENT Head: Normal ( normocephalic) Eye Exam: Normal (PERRL, EOMI, Sclera white) Oropharynx: Normal (Pharynx:Moist without exudate,Gums-no swelling) Tympanic Membrane: Normal ENT EAC: Normal TMJ: Normal Nose: No Symptoms Reported (septum midline) Neck: Normal (FROM, trachea at midline) - Respiratory/Cardiovascular Respiratory: Normal - CTA (BBS clear to auscultation without adventitious sounds ) Cardiovascular: Normal (RRR without murmur, gallop or rub) - GI Auscultation: Normal (NABS) Palpation: Normal (Soft,No rebound or guarding, non distended) Tenderness: Non tender Merchant's Sign: Negative - Musculoskeletal Back: Normal (Non-Tender) Extremities: Normal (Normal tone, Pulses 2+ No cyanosis or edema, FROM) - Integumentary Skin: Normal, Warm, Dry, Other (5 CM LACERATION LATERAL ASPECT OF LEFT THUMB; FROM; NEUROVASC INTACT) Lymphatics: Normal (no adenopathy) - Neurologic Memory Impaired: Normal Motor Function: Normal (Normal tone, Pulses 2+ No cyanosis or edema, FROM) Cranial Nerve: Normal (CN II-X11 intact sensation, strength 5/5) Cerebellar: Normal Mood Description: Normal Perception: Normal <Benjy Simmons - Last Filed: 09/24/16 06:48> - Physical Exam Last recorded Vital Signs: Last Vital Signs Temp 98.7 F 09/24/16 06:05 Pulse 89 09/24/16 06:50 Resp 18 09/24/16 06:05 BP 167/74 09/24/16 06:50 Pulse Ox 92 09/24/16 06:05 Oxygen Pulse Oxygen Saturation 92 O2 Device Room Air Oxygen Flow Rate Fraction of Inspired Oxygen ( FIO2) <Ace Herrera - Last Filed: 09/24/16 07:50> ED Procedures - Suture/Laceration Suture #1 Left Hand Wound Length (cm): 5 Wound's Depth, Shape: superficial Wound Explored: clean Betadine Prep?: Yes Anesthesia: 1% Lidocaine Wound Debrided: minimal Suture Size/Type: 4:0 Number of Sutures: 9 Layer Closure?: No Sterile Dressing Applied?: Yes Splint Applied?: No <Benjy Simmons - Last Filed: 09/24/16 06:48> - EKG EKG #1 [place]: Normal Rhythm: NSR Block: None Hypertrophy: None ST: Normal <Benjy Simmons - Last Filed: 09/24/16 06:48> - Departure Yes I personally saw and evaluated the patient. Disposition: Home Education/Counseling Given To: Patient Education/Counseling Given Regarding: Diagnosis, Treatment, Prognosis <Benjy Simmons - Last Filed: 09/24/16 06:48> Decision Time to Discharge: 07:49 - Departure Yes I personally saw and evaluated the patient. Disposition: Home <Ace Herrera - Last Filed: 09/24/16 07:50> - Departure Condition: Good Final Diagnosis: Accidental fall, 5CM LACERATION LEFT THUMB-SIMPLE Instructions: Laceration (ED) Referrals: Burke Loera MD [Primary Care Provider] - One Week Prescriptions: New Oxycodone HCl [Roxicodone] 5 mg PO Q4-6H PRN #15 tablet PRN Reason: Breakthrough Pain No Action Simvastatin 40 mg PO HS Alprazolam 1 mg PO TID PRN PRN Reason: Anxiety Trazodone HCl 100 - 200 mg PO HS Losartan Potassium [Cozaar] 100 mg PO QAM Omeprazole 20 mg PO HS Ranitidine [Zantac] 150 mg PO BID Gabapentin 100 mg PO BID Donepezil HCl [Aricept] 5 mg PO HS Aspirin (Enteric Coated) [Halfprin] 81 mg PO QAM Hydralazine HCl 100 mg PO TID Labetalol HCl 200 mg PO TID Meloxicam [Mobic] 7.5 mg PO BID Duloxetine [Cymbalta] 60 mg PO HS Oxycodone HCl/Acetaminophen [Percocet 5-325 mg Tablet] 1 tab PO BID PRN #60 tablet PRN Reason: Pain Promethazine [Phenergan] 25 mg PO QID PRN PRN Reason: Nausea Diclofenac Sodium [Voltaren 1% Topical Gel] 0 gm TOP QID PRN PRN Reason: Pain Calcium Carbonate/Vitamin D3 [Calcium 500 + Vit D Caplet] 1 each PO QAM Cetirizine HCl [Zyrtec] 10 mg PO HS Cyclobenzaprine HCl [Flexeril] 10 mg PO TID PRN PRN Reason: Muscle Spasms Additional Instructions: SUTURES OUT IN 10 DAYS.
[2016-09-24 06:12] VITALS: TEMP 98.7; BMI 27.4
[2016-09-24] MEDS ORDERED: LIDOCAINE 1% 5 ML (METHYLPARABEN FREE) INF ONE (06:12)
[2016-09-24] MEDS ORDERED: LIDOCAINE 2% 5 ML (PRESERVATIVE FREE) VIAL ONE (06:14)
--- NOTE | 2016-09-24 06:48 | DIRPT ---
CLINICAL DATA: Left hand injury. Laceration at the base of the thumb after fall. Grabbed door when falling. Initial encounter. EXAM: LEFT HAND - COMPLETE 3+ VIEW COMPARISON: None. FINDINGS: There is no evidence of fracture or dislocation. Mild degenerative change is noted at the first carpometacarpal joint. Mild soft tissue disruption is noted about the base of the thumb. No radiopaque foreign bodies are seen. IMPRESSION: No evidence of fracture or dislocation. No radiopaque foreign body seen. Mild degenerative change at the first carpometacarpal joint. Electronically Signed By: Rolando Sharma M.D. On: 09/24/2016 06:45
[2016-09-24 07:00] VITALS: BP 167/74; PULSE 89
== END 2016-09-24 08:07 | disposition home or self-care (01) ==
LOC: ED 05:56
DX: S61.012A Laceration without foreign body of left thumb without damage to nail, initial encounter (principal); W18.39XA Other fall on same level, initial encounter; Y93.9 Activity, unspecified
CPT/HCPCS: 12002; 73130; 93005; 99283; J2001